=== PATIENT | female | born 1990 | race Caucasian/White ===

== ENCOUNTER 2019-03-22 11:09 | Emergency (ER) | payer OTHER ==
[~2019-03-22] VITALS: Ht 165.1 cm; Wt 99.8 kg
[2019-03-22] MEDS ORDERED: MECLIZINE HCL 12.5 MG TAB ONE (12:13)
[2019-03-22] MEDS ORDERED: MECLIZINE HCL 12.5 MG TAB PO ONE (12:15)
[2019-03-22 12:17] LABS: BILIRUBIN,URINE NEGATIVE (NEGATIVE); CLARITY,URINE CLEAR (CLEAR); COLOR,URINE YELLOW (YELLOW); KETONES,URINE NEGATIVE (NEGATIVE); LEUKOCYTE ESTERASE ,URINE SMALL (NEGATIVE); NITRITE,URINE NEGATIVE (NEGATIVE); PROTEIN,URINE DIPSTICK NEGATIVE (NEGATIVE); URINE UROBILINOGEN 0.2 mg/dL (0.2 - 1)
[2019-03-22 12:22] LABS: PREGNANCY TEST, URINE NEGATIVE (NEGATIVE)
[2019-03-22 12:37] LABS: BACTERIA,URINE MODERATE /HPF; EPITHELIAL CELLS,URINE MANY /LPF; WBC,URINE (MAN) >50 /HPF (0-5)
--- NOTE | 2019-03-22 13:54 | Diagnostic Imaging Report ---
Exam: Head CT without contrast History: Shortness of breath, tingling, dizziness Comparison studies: None Technique: Axial images were obtained from the skull base to the vertex. Coronal and sagittal images reconstructed from the axial data. Dose modulation, iterative reconstruction, and/or weight based adjustment of the mA/kV was utilized to reduce the radiation dose to as low as reasonably achievable. Radiation dose: Total DLP: 921 mGy*cm. Estimated effective dose: DLP x 0.015 Intravenous contrast: None Findings: Scalp: No abnormalities. Bones: No fractures, blastic or lytic lesions. Brain sulci: Appropriate for age. Ventricles: Normal in size and configuration. No hydrocephalus. Extra-axial spaces: No masses, no fluid collection. Parenchyma: No abnormal densities. No masses, hemorrhage, acute or chronic vascular insults. Sellar/suprasellar region: No abnormalities. Craniocervical junction: Patent foramen magnum. No Chiari one malformation. Included paranasal sinuses and mastoid air cells: Clear. IMPRESSION: No abnormalities. Signed by: Dr. Earl Hernández M.D. on 03/22/2019 1:51 PM
== END 2019-03-22 15:02 | disposition home or self-care (01) ==
LOC: ER 11:09
DX: H81.13 Benign paroxysmal vertigo, bilateral (principal); H81.393 Other peripheral vertigo, bilateral; N39.0 Urinary tract infection, site not specified
CPT/HCPCS: 70450; 81001; 81025; 99283; J8597

== ENCOUNTER 2021-08-20 10:16 | Emergency (ER) | payer OTHER ==
[~2021-08-20] VITALS: Ht 165.1 cm; Wt 99.8 kg
[2021-08-20] MEDS ORDERED: KETOROLAC TROMETHAMINE 30 MG/ML VIAL IV STA (10:42)
[2021-08-20] MEDS ORDERED: METOCLOPRAMIDE HCL 10 MG/2ML VIAL IV ONE (10:45)
[2021-08-20] MEDS ORDERED: DIPHENHYDRAMINE HCL INJ 50 MG/ML VIAL IV ONE (10:45)
[2021-08-20] MEDS ORDERED: SODIUM CHLORIDE 0.9% 1000ML 1,000 ML IV ONE (11:00)
[2021-08-20] MEDS ORDERED: SODIUM CHLORIDE 0.9% 100 ML ONE (11:09)
[2021-08-20 13:14] VITALS: BP 134/87
== END 2021-08-20 13:00 | disposition home or self-care (01) ==
LOC: ER 10:21
DX: G43.909 Migraine, unspecified, not intractable, without status migrainosus (principal)
CPT/HCPCS: 99283; J1200; J1885; J2765; J7030; J7050